=== PATIENT | female | born 1990 | race Two or more races ===

== ENCOUNTER 2020-11-12 22:12 | Emergency (ER) | payer OTHER ==
[~2020-11-12] VITALS: Ht 154.9 cm; Wt 52.2 kg
[2020-11-13] MEDS ORDERED: HEMATOGEN FORT1 EACH PO (07:26)
== END 2020-11-13 07:36 ==
LOC: ER 22:12
DX: N39.8 Other specified disorders of urinary system (principal)

== ENCOUNTER 2021-07-07 06:07 | Emergency (ER) | payer OTHER ==
[~2021-07-07] VITALS: Ht 154.9 cm; Wt 47.6 kg
[~2021-07-07 06:07] MED LIST: HEMATOGEN FORT1 EACH PO
[2021-07-07] MEDS ORDERED: PYRIDIUM200 MG PO (12:05)
[2021-07-07] MEDS ORDERED: CIPRO500 MG PO (12:05)
== END 2021-07-07 12:22 | disposition home or self-care (01) ==
LOC: ER 06:07
DX: R30.0 Dysuria (principal); D68.59 Other primary thrombophilia; D68.0 Von Willebrand disease; D64.9 Anemia, unspecified

== ENCOUNTER 2022-02-18 22:59 | Emergency (ER) | payer OTHER ==
[~2022-02-18] VITALS: Ht 149.9 cm; Wt 54.4 kg
[~2022-02-18 22:59] MED LIST changes: +CIPRO500 MG PO; +PYRIDIUM200 MG PO
[2022-02-18] MEDS ORDERED: AMICAR500 MG (23:51)
[2022-02-18] MEDS ORDERED: [UNRECOGNIZED DRUG - OTHER] (23:51)
[2022-02-18] MEDS ORDERED: PYRIDIUM200 MG (23:52)
[2022-02-19] MEDS ORDERED: ORPHENADRINE C100 MG PO (07:05)
[2022-02-19] MEDS ORDERED: CIPRO500 MG PO (07:05)
== END 2022-02-19 08:33 ==
LOC: ER 22:59
DX: N39.0 Urinary tract infection, site not specified (principal); M79.7 Fibromyalgia; R53.81 Other malaise; Z88.8 Allergy status to other drugs, medicaments and biological substances

== ENCOUNTER 2022-04-12 11:25 | Emergency (ER) | payer OTHER ==
[~2022-04-12] VITALS: Ht 149.9 cm; Wt 50.8 kg
[~2022-04-12 11:25] MED LIST changes: +AMICAR500 MG; +ORPHENADRINE C100 MG PO; +PYRIDIUM200 MG; +[UNRECOGNIZED DRUG - OTHER]
== END 2022-04-12 15:55 | disposition home or self-care (01) ==
LOC: ER 11:25
DX: O20.0 Threatened abortion (principal); Z3A.01 Less than 8 weeks gestation of pregnancy; O26.859 Spotting complicating pregnancy, unspecified trimester; O36.80X0 Pregnancy with inconclusive fetal viability, not applicable or unspecified; Z88.6 Allergy status to analgesic agent; Z88.0 Allergy status to penicillin; Z88.9 Allergy status to unspecified drugs, medicaments and biological substances; Z91.041 Radiographic dye allergy status

== ENCOUNTER 2022-05-03 10:04 | Outpatient (CLI) | payer OTHER | END 2022-05-03 12:40 | disposition home or self-care (01) | LOC: PRENATAL 10:04 | PROVIDERS: ATTEND Obstetrics & Gynecology Maternal & Fetal Medicine | DX: O36.80X0 Pregnancy with inconclusive fetal viability, not applicable or unspecified (principal); O26.859 Spotting complicating pregnancy, unspecified trimester; Z88.0 Allergy status to penicillin; Z3A.01 Less than 8 weeks gestation of pregnancy ==

== ENCOUNTER 2022-05-17 12:26 | Outpatient (CLI) | payer OTHER | END 2022-05-17 12:27 | disposition home or self-care (01) | LOC: SONOGRAMA 12:26 | PROVIDERS: ATTEND Specialist | DX: O36.4XX0 Maternal care for intrauterine death, not applicable or unspecified (principal) ==

== ENCOUNTER 2022-05-21 05:40 | Day surgery (SDC) | payer OTHER | END 2022-05-21 13:00 | disposition home or self-care (01) | LOC: CIR.AMB 05:40 → ADM 09:00 → CIR.AMB 09:00 | PROVIDERS: ATTEND Specialist | DX: O02.1 Missed abortion (principal); Z88.0 Allergy status to penicillin; Z88.6 Allergy status to analgesic agent; Z91.013 Allergy to seafood; Z88.8 Allergy status to other drugs, medicaments and biological substances; M79.7 Fibromyalgia; Z20.822 Contact with and (suspected) exposure to COVID-19; J45.909 Unspecified asthma, uncomplicated; Z86.16 Personal history of COVID-19 ==

== ENCOUNTER 2023-02-20 17:07 | Emergency (ER) | payer OTHER ==
[~2023-02-20] VITALS: Ht 149.9 cm; Wt 52.6 kg
== END 2023-02-20 21:39 | disposition home or self-care (01) ==
LOC: ER 17:07
DX: N93.9 Abnormal uterine and vaginal bleeding, unspecified (principal); Z91.041 Radiographic dye allergy status

== ENCOUNTER 2023-09-16 13:13 | Outpatient (CLI) | payer OTHER | END 2023-09-16 13:15 | disposition home or self-care (01) | LOC: PRENATAL 13:13 | PROVIDERS: ATTEND Obstetrics & Gynecology Maternal & Fetal Medicine | DX: O36.80X0 Pregnancy with inconclusive fetal viability, not applicable or unspecified (principal); Z36.82 Encounter for antenatal screening for nuchal translucency; O26.20 Pregnancy care for patient with recurrent pregnancy loss, unspecified trimester; Z3A.12 12 weeks gestation of pregnancy ==

== ENCOUNTER 2023-11-08 07:58 | Outpatient (CLI) | payer OTHER | END 2023-11-08 08:00 | disposition home or self-care (01) | LOC: PRENATAL 07:58 | PROVIDERS: ATTEND Obstetrics & Gynecology Maternal & Fetal Medicine | DX: O35.9XX0 Maternal care for (suspected) fetal abnormality and damage, unspecified, not applicable or unspecified (principal); O35.3XX0 Maternal care for (suspected) damage to fetus from viral disease in mother, not applicable or unspecified; O44.00 Complete placenta previa NOS or without hemorrhage, unspecified trimester; O26.20 Pregnancy care for patient with recurrent pregnancy loss, unspecified trimester; Z3A.19 19 weeks gestation of pregnancy ==

== ENCOUNTER 2023-12-21 01:16 | Outpatient (CLI) | payer OTHER ==
[~2023-12-21 01:16] MED LIST changes: +LOVENOX40 MG/0.4 SUBCUTANEO
[2023-12-21] MEDS ORDERED: MAGNESIUM HYDROXIDE 30 ML BLIST.PACK PO ONE (01:30)
[2023-12-21] MEDS ORDERED: MINERAL OIL 30 ML BLIST.PACK PO ONE (01:30)
[2023-12-21 02:11] LABS: HEMATOCRIT 29.8 % (36.0-45.00); HEMOGLOBIN 10.3 g/dL (12.0-15.00); MEAN CELL VOLUME 90.5 fL (80.00-100.00); MEAN CORPUSCULAR HEMOGLOBIN 31.4 pg (27.00-32.0); MEAN CORPUSCULAR HGB CONC 34.7 g/dl (32.0-36.0); PLATELET COUNT 237 K/uL (150-450); RED BLOOD COUNT 3.29 M/uL (4.00-6.00)
[2023-12-21 02:46] LABS: ALBUMIN 2.8 gm/dL (3.4-5.0); BILIRUBIN TOTAL 0.51 mg/dL (0.3-1.2); CALCIUM 8.4 mg/dL (8.5-10.1); CREATININE SERUM 0.44 mg/dL (0.55-1.02); GFR 164.68; POTASSIUM 3.85 mEq/L (3.5-5.1); TOTAL PROTEIN 5.8 gm/dL (6.4-8.2)
[2023-12-21] MEDS ORDERED: MINERAL OIL 30 ML BLIST.PACK PO STA (08:14)
[2023-12-21] MEDS ORDERED: MAGNESIUM HYDROXIDE 30 ML BLIST.PACK PO STA (08:14)
[2023-12-21] MEDS ORDERED: COLACE100 MG PO (08:16)
[2023-12-21] MEDS ORDERED: ANUSOL-HC30 G2 RECTAL (08:27)
[2023-12-21] MEDS ORDERED: HYDROCORTISONE 2.5% 30 GM TUBE RECTAL SCH (09:00)
== END 2023-12-21 09:28 | disposition home or self-care (01) ==
LOC: OBS/DEL 01:16
PROVIDERS: ATTEND Specialist
DX: O09.42 Supervision of pregnancy with grand multiparity, second trimester (principal); Z3A.26 26 weeks gestation of pregnancy; K59.09 Other constipation

== ENCOUNTER 2023-12-27 14:25 | Outpatient (CLI) | payer OTHER ==
[~2023-12-27] VITALS: Ht 149.9 cm; Wt 64.4 kg
[~2023-12-27 14:25] MED LIST changes: -PRENATAL TABLE1 EAC1 PO
[2023-12-27] MEDS ORDERED: RINGERS SOLUTION,LACTATED 1,000 ML IV SCH (15:00)
[2023-12-27] MEDS ORDERED: PRENATAL TABLE1 EAC1 PO (15:37)
[2023-12-27 15:53] LABS: HEMATOCRIT 29.5 % (36.0-45.00); HEMOGLOBIN 10.4 g/dL (12.0-15.00); MEAN CELL VOLUME 89.2 fL (80.00-100.00); MEAN CORPUSCULAR HEMOGLOBIN 31.3 pg (27.00-32.0); MEAN CORPUSCULAR HGB CONC 35.1 g/dl (32.0-36.0); PLATELET COUNT 229 K/uL (150-450); RED BLOOD COUNT 3.31 M/uL (4.00-6.00); RED CELL DISTRIBUTION WIDTH 13.4 % (11.5-14.5)
[2023-12-27 16:15] LABS: INR 0.95; PARTIAL THROMBOPLASTIN TIME 25.8 SECONDS (22.0-34.0)
[2023-12-27 16:24] LABS: ALBUMIN 2.8 gm/dL (3.4-5.0); BILIRUBIN TOTAL 0.68 mg/dL (0.3-1.2); CALCIUM 8.6 mg/dL (8.5-10.1); CREATININE SERUM 0.56 mg/dL (0.55-1.02); GFR 124.67; POTASSIUM 4.25 mEq/L (3.5-5.1); TOTAL PROTEIN 5.8 gm/dL (6.4-8.2)
[2023-12-27] MEDS ORDERED: BISACODYL 10 MG/SUPP.RECT SUPP.RECT RECTAL ONE (20:00)
[2023-12-28 00:36] LABS: PH,URINE 7.5 (5.0-8.0); URINE APPEARANCE Clear; URINE BILIRRUBIN Negative (NEGATIVE); URINE BLOOD Negative; URINE COLOR Yellow; URINE GLUCOSE Negative (NEGATIVE); URINE LEUKOCYTE Trace; URINE NITRATE Negative; URINE PROTEIN Negative (NEGATIVE)
[2023-12-28 00:39] LABS: URINE BACTERIA 724.4 uL (0.0-1933); URINE EPITHELIAL CELLS 54.4 uL (0.0-38.8); URINE RBC 2.8 uL (0.0-20.8); URINE WBC 12.8 uL (0.0-23.2)
== END 2023-12-28 10:23 | disposition home or self-care (01) ==
LOC: OBS/DEL 14:25
PROVIDERS: ATTEND Specialist
DX: O26.892 Other specified pregnancy related conditions, second trimester (principal); Z3A.26 26 weeks gestation of pregnancy; K59.00 Constipation, unspecified

== ENCOUNTER → 2023-12-27 | Emergency (ER) | payer OTHER ==
[~2023-12-27] MED LIST changes: +ANUSOL-HC30 G2 RECTAL; +COLACE100 MG PO; +PRENATAL TABLE1 EAC1 PO
== END | disposition left against medical advice (07) ==
LOC: ER 13:38
DX: Z53.21 Procedure and treatment not carried out due to patient leaving prior to being seen by health care provider (principal)

== ENCOUNTER 2024-01-26 10:23 | Outpatient (CLI) | payer OTHER ==
[~2024-01-26 10:23] MED LIST changes: +PRENATAL TABLE1 EAC1 PO
== END 2024-01-26 10:24 | disposition home or self-care (01) ==
LOC: NUCLEAR 10:23
PROVIDERS: ATTEND Specialist
DX: I82.402 Acute embolism and thrombosis of unspecified deep veins of left lower extremity (principal)

== ENCOUNTER → 2024-02-01 07:56 | Outpatient (CLI) | payer OTHER | END | disposition home or self-care (01) | LOC: PRENATAL 07:56 | PROVIDERS: ATTEND Obstetrics & Gynecology Maternal & Fetal Medicine | DX: O26.849 Uterine size-date discrepancy, unspecified trimester (principal); O36.8199 Decreased fetal movements, unspecified trimester, other fetus; O99.891 Other specified diseases and conditions complicating pregnancy; O99.019 Anemia complicating pregnancy, unspecified trimester; Z3A.32 32 weeks gestation of pregnancy ==